=== PATIENT | male | born 1960 | race Caucasian/White ===

== ENCOUNTER 2024-10-06 05:59 | Inpatient (IN) | payer BC ==
[2024-09-07 10:31] LABS: BASOPHILS # (AUTO) 0.1 (0.0-0.1); BASOPHILS % 0.8 % (0.0-1.0); EOSINOPHILS # (AUTO) 0.2 (0.0-0.4); EOSINOPHILS % 2.9 % (0.0-6.0); HEMATOCRIT 48.1 % (38.2-49.6); HEMOGLOBIN 15.3 g/dL (14.0-18.0); LYMPHOCYTES # (AUTO) 1.9 (1.0-3.2); MEAN CORPUSCULAR HEMOGLOBIN 30.8 pg (28-32); MEAN CORPUSCULAR HGB CONC 31.8 g/dL (31-35); MONOCYTES # (AUTO) 0.5 (0.2-0.8); MONOCYTES % 8.4 % (4.4-11.3); NEUTROPHILS # (AUTO) 3.6 (2.1-6.9); NEUTROPHILS % 57.7 % (38.7-80.0); PLATELET COUNT 182 x10e3/uL (140-360); RED BLOOD COUNT 4.96 x10e6/uL (4.3-5.7); RED CELL DISTRIBUTION WIDTH 14.7 % (11.7-14.4); WHITE BLOOD COUNT 6.29 x10e3/uL (4.8-10.8)
[~2024-10-06] VITALS: Ht 188 cm; Wt 174.2 kg
[2024-10-06] VITALS (8 sets, daily range): BP systolic 106–153; BP diastolic 70–89; PULSE 72–90; RESP 16–23; TEMP 96.5–97.5; O2SAT 94–99
[~2024-10-06 05:59] MED LIST: GABAPENTIN300 MG PO; LIPITOR10 MG PO; METFORMIN HCL500 MG PO; MOUNJARO7.5 MG/0.5 SC; MULTI-VITAMIN1 EACH PO; VASOTEC10 M1 PO; VIT B12 PO
[2024-10-06] MEDS: CEFAZOLIN SODIUM 2 GM ONE (06:18)
[2024-10-06] MEDS: LACTATED RINGER'S 1,000 ML ONE (06:18)
[2024-10-06] MEDS: SCOPOLAMINE 1 MG PATCH ONE (06:19)
[2024-10-06] MEDS ORDERED: FENTANYL CITRATE/PF 100MCG/2 ML INJ ONE ×2 (06:39→08:00)
[2024-10-06] MEDS ORDERED: SUCCINYLCHOLINE CHLORIDE 20 MG/ML 10ML VIAL ONE (06:39)
[2024-10-06] MEDS ORDERED: ROCURONIUM BROMIDE 2 ML IV ONE (06:39)
[2024-10-06] MEDS ORDERED: PROPOFOL IV EMULSION 10 MG/ML 20 ML VIAL ONE (06:39)
[2024-10-06] MEDS ORDERED: PHENYLEPHRINE HCL 1% 10 MG/ML VIAL ONE (07:26)
[2024-10-06] MEDS: SCOPOLAMINE 1 MG PATCH TOP SCH (07:30)
[2024-10-06] MEDS ORDERED: ONDANSETRON HCL INJ 2MG/ML 2ML 2 MG/ML VIAL IV PRN (07:30)
[2024-10-06] MEDS ORDERED: FAMOTIDINE 20 MG/2 ML VIAL IV ONE (07:35)
[2024-10-06] MEDS ORDERED: METOCLOPRAMIDE HCL 10 MG/2ML VIAL ONE (07:35)
[2024-10-06] MEDS ORDERED: ACETAMINOPHEN 1000 MG/100 ML 100 ML IV ONE (07:44)
[2024-10-06] MEDS ORDERED: ROCURONIUM BROMIDE 1 ML IV ONE ×2 (07:53→09:07)
[2024-10-06] MEDS ORDERED: SUGAMMADEX SODIUM 200 MG/2 ML VIAL IV ONE (08:06)
[2024-10-06] MEDS ORDERED: LABETALOL HCL 20 ML ONE (08:10)
[2024-10-06] MEDS: HYDROCODONE/APAP 7.5MG-325MG 1 EA TAB PO PRN (11:33)
[2024-10-06] MEDS: LACTATED RINGER'S 1,000 ML IV SCH (11:36)
[2024-10-06] MEDS: BUPIVACAINE LIPOSOME/PF 266 MG/20 ML IJ ONE (11:37)
[2024-10-06] MEDS: Morphine 2mg Syringe 2 MG/ML SYR IV PRN (12:42)
[2024-10-06] MEDS: ENOXAPARIN SOD INJ 40 MG/0.4 ML SYR SC SCH (22:30)
[2024-10-07] VITALS: BP 134/71; PULSE 101; RESP 19; TEMP 98.9; O2SAT 93
[2024-10-07 04:00] VITALS: BP 126/86; PULSE 91; RESP 19; TEMP 97.7; O2SAT 98
[2024-10-07 05:25] LABS: BASOPHILS % 0.4 % (0.0-1.0); EOSINOPHILS # (AUTO) 0.1 (0.0-0.4); EOSINOPHILS % 0.8 % (0.0-6.0); HEMATOCRIT 40.9 % (38.2-49.6); LYMPHOCYTES # (AUTO) 1.6 (1.0-3.2); LYMPHOCYTES % 21.9 % (18.0-39.1); MEAN CORPUSCULAR HEMOGLOBIN 31.5 pg (28-32); MEAN CORPUSCULAR HGB CONC 31.8 g/dL (31-35); MONOCYTES # (AUTO) 0.7 (0.2-0.8); MONOCYTES % 10.1 % (4.4-11.3); NEUTROPHILS # (AUTO) 4.8 (2.1-6.9); NEUTROPHILS % 66.5 % (38.7-80.0); PLATELET COUNT 151 x10e3/uL (140-360); RED BLOOD COUNT 4.13 x10e6/uL (4.3-5.7); RED CELL DISTRIBUTION WIDTH 15.4 % (11.7-14.4); WHITE BLOOD COUNT 7.25 x10e3/uL (4.8-10.8)
[2024-10-07 05:51] LABS: ALBUMIN 3.1 g/dL (3.5-5.0); ANION GAP 15.8 mmol/L (8-16); CALCIUM 8.7 mg/dL (8.4-10.2); CREATININE, SERUM 0.84 mg/dL (0.72-1.25); MAGNESIUM 1.5 MG/DL (1.3-2.1); PHOSPHORUS 3.2 MG/DL (2.3-4.7); POTASSIUM 3.8 mmol/L (3.5-5.1); TOTAL PROTEIN 6.1 g/dL (6.5-8.1)
[2024-10-07 08:00] VITALS: BP 142/81; PULSE 92; RESP 20; TEMP 98.4; O2SAT 96
[2024-10-07 08:11] VITALS: PULSE 82; RESP 18; O2SAT 95
[2024-10-07 12:22] VITALS: BP 135/80; PULSE 92; RESP 21; TEMP 98.6; O2SAT 96
[2024-10-07] MEDS: HYDROCODONE/APAP 7.5MG-325MG 1 EA TAB PO ONE (14:09)
[2024-10-07] MEDS ORDERED: HYDROCODONE/APAP 7.5MG-325MG 1 EA TAB PO PRN (16:00)
== END 2024-10-07 14:27 | disposition home or self-care (01) | DRG 621 ==
LOC: OR 05:59 → PACU V 07:20 → MED/SURG 11:12
PROVIDERS: ADMIT Internal Medicine; ATTEND Internal Medicine
PROC: 0FB24ZX Excision of Left Lobe Liver, Percutaneous Endoscopic Approach, Diagnostic (ICD-10-PCS; 2024-10-06)
PROC: 0BQT4ZZ Repair Diaphragm, Percutaneous Endoscopic Approach (ICD-10-PCS; 2024-10-06)
PROC: 0D164ZA Bypass Stomach to Jejunum, Percutaneous Endoscopic Approach (ICD-10-PCS; principal; 2024-10-06 07:12)
DX: E66.01 Morbid (severe) obesity due to excess calories (principal); Z68.42 Body mass index [BMI] 45.0-49.9, adult; E78.5 Hyperlipidemia, unspecified; K44.9 Diaphragmatic hernia without obstruction or gangrene; K76.0 Fatty (change of) liver, not elsewhere classified; K21.9 Gastro-esophageal reflux disease without esophagitis; I10 Essential (primary) hypertension; Z98.84 Bariatric surgery status
CPT/HCPCS: 36415; 80053; 83735; 84100; 85025; 88307; 88313; 93005; 94799; C1894; J0330; J1650; J2270; J2371; J2405; J2765